=== PATIENT | female | born 1960 | race Caucasian/White ===

== ENCOUNTER 2016-12-18 13:30 | Emergency (ER) | payer SELFPAY ==
[~2016-12-18] VITALS: Ht 175.3 cm; Wt 86.0 kg
[~2016-12-18 13:30] MED LIST: LORA1TAB PO; METH4TAB2 PO; METH500T7 PO; NAPR500T PO; OMEP-110 PO
[2016-12-18] MEDS ORDERED: LORazepam 2 MG/ML, 1ML ONE (14:19)
[2016-12-18] MEDS ORDERED: LORazepam 2 MG/ML, 1ML IVPush ONE (14:30)
[2016-12-18 14:42] LABS: BLOOD UREA NITROGEN 11 mg/dL (7-18)
[2016-12-18] MEDS ORDERED: SODIUM CHLORIDE FLUSH 10ML SYR IVF ONE (15:00)
[2016-12-18 16:11] VITALS: BP 158/78
== END 2016-12-18 16:16 | disposition home or self-care (01) ==
LOC: ED 16:00
DX: M94.0 Chondrocostal junction syndrome [Tietze] (principal); F41.1 Generalized anxiety disorder; R06.4 Hyperventilation; J44.9 Chronic obstructive pulmonary disease, unspecified
CPT/HCPCS: 36415; 71010; 80048; 82040; 83880; 84484; 85025; 85379; 93005; 96374; 99285; J2060

== ENCOUNTER 2017-05-28 22:15 | Inpatient (IN) | payer OTHER ==
[~2017-05-28] VITALS: Ht 170.2 cm; Wt 89.3 kg
[~2017-05-28 22:15] MED LIST changes: +NAPR-856 PO; -NAPR500T PO
[2017-05-28] MEDS ORDERED: HYDROmorphone 2 MG/ML, 1ML ONE ×2 (22:47→23:21)
[2017-05-28] MEDS ORDERED: ONDANSETRON 2MG/ML, 2ML ONE (22:47)
[2017-05-28] MEDS: HYDROmorphone 2 MG/ML, 1ML IVPush PRN ×2 (22:54→23:28)
[2017-05-28] MEDS ORDERED: ONDANSETRON 2MG/ML, 2ML IVPush ONE (23:00)
[2017-05-28] MEDS ORDERED: SODIUM CHLORIDE 0.9% 1,000ML IVBOLUS ONE (23:00)
[2017-05-28 23:03] LABS: HEMATOCRIT 49.1 % (34.6-47.8); HEMOGLOBIN 16.1 g/dL (11.7-16.4); WHITE BLOOD COUNT 11.4 x10^3/uL (3.4-10)
[2017-05-28 23:14] LABS: ASPARTATE AMINO TRANSFERASE 139 U/L (15-37); BLOOD UREA NITROGEN 10 mg/dL (7-18)
[2017-05-28 23:36] LABS: IS PT STATUS REG ER OR PRE ER? YES
[2017-05-29] MEDS ORDERED: OMNIPAQUE 350 MG/ML, 100ML BOTTLE ONE (00:02)
[2017-05-29] MEDS ORDERED: SODIUM CHLORIDE 0.9% 1,000 ML IV ONE (01:43)
[2017-05-29] MEDS ORDERED: MORPHINE SULFATE 4 MG/ML, 1ML IVPush PRN (02:00)
[2017-05-29] MEDS ORDERED: SODIUM CHLORIDE 0.9% 1,000ML IVBOLUS ONE ×2 (02:00→06:00)
[2017-05-29 02:54] VITALS: BP 124/82
[2017-05-29] MEDS: SODIUM CHLORIDE 0.9% 1,000 ML IV SCH ×2 (06:00→21:38)
[2017-05-29] MEDS ORDERED: CEFEPIME 2 GM in DEXTROSE 5% 100 ML IV SCH (06:00)
[2017-05-29] MEDS ORDERED: HYDROmorphone 2 MG/ML, 1ML ONE (06:03)
[2017-05-29] MEDS: ONDANSETRON 2MG/ML, 2ML IVPush PRN ×3 (06:08→19:26)
[2017-05-29] MEDS: HYDROmorphone 2 MG/ML, 1ML IVPush PRN ×3 (06:09→19:17)
[2017-05-29 06:37] LABS: HEMATOCRIT 42.9 % (34.6-47.8); HEMOGLOBIN 14.4 g/dL (11.7-16.4); WHITE BLOOD COUNT 7.5 x10^3/uL (3.4-10)
[2017-05-29 06:40] LABS: DAU SCREEN DISCLAIMER
[2017-05-29 06:46] LABS: ASPARTATE AMINO TRANSFERASE 181 U/L (15-37); BLOOD UREA NITROGEN 9 mg/dL (7-18)
[2017-05-29 08:00] VITALS: BP 122/73
[2017-05-29] MEDS: CEFEPIME 2 GM in DEXTROSE 5% 100 ML IV SCH ×2 (08:10→21:47)
[2017-05-29] MEDS ORDERED: ACETAMINOPHEN 325 MG TABLET PO PRN (09:00)
[2017-05-29] MEDS ORDERED: OXYcodone IR 5MG TABLET PO PRN (09:00)
[2017-05-29] MEDS ORDERED: POLYETHYLENE GLYCOL 17 GM PACKET PO PRN (09:00)
[2017-05-29] MEDS ORDERED: DOCUSATE 100 MG CAPSULE PO PRN (09:00)
[2017-05-29] MEDS ORDERED: ALPRazolam 1MG TABLET PO ONE (10:00)
[2017-05-29] MEDS: SENNA/DOCUSATE TABLET PO SCH (10:46)
[2017-05-29] MEDS: NS + 20MEQ KCL 1,000 ML IV SCH (10:46)
[2017-05-29 12:43] VITALS: BP 130/81
[2017-05-29 20:11] VITALS: BP 144/82
[2017-05-29 20:45] VITALS: BP 130/68
[2017-05-29] MEDS ORDERED: LORazepam 2 MG/ML, 1ML IVPush ONE (22:00)
[2017-05-30] MEDS: HYDROmorphone 2 MG/ML, 1ML IVPush PRN ×3 (00:06→20:55)
[2017-05-30] MEDS: NS + 20MEQ KCL 1,000 ML IV SCH (01:43)
[2017-05-30] MEDS: ONDANSETRON 2MG/ML, 2ML IVPush PRN ×3 (01:43→15:56)
[2017-05-30 02:58] VITALS: BP 107/68
[2017-05-30 05:49] LABS: BLOOD UREA NITROGEN 7 mg/dL (7-18)
[2017-05-30 05:51] LABS: HEMATOCRIT 40.6 % (34.6-47.8); HEMOGLOBIN 13.8 g/dL (11.7-16.4); WHITE BLOOD COUNT 5.4 x10^3/uL (3.4-10)
[2017-05-30 05:53] LABS: ASPARTATE AMINO TRANSFERASE 46 U/L (15-37)
[2017-05-30] MEDS: SODIUM CHLORIDE 0.9% 1,000 ML IV SCH ×2 (06:43→19:54)
[2017-05-30 06:54] VITALS: BP 129/89
[2017-05-30] MEDS: SENNA/DOCUSATE TABLET PO SCH (09:00)
[2017-05-30] MEDS: CEFEPIME 2 GM in DEXTROSE 5% 100 ML IV SCH (09:39)
[2017-05-30 13:50] VITALS: BP 136/88
[2017-05-30] MEDS ORDERED: hydrALAzine 20 MG/ML, 1ML IV PRN (15:30)
[2017-05-30] MEDS ORDERED: OXYcodone 5 MG/5 ML ORAL.SOL UDC PO PRN (15:30)
[2017-05-30] MEDS ORDERED: LABETALOL 5MG/ML, 20ML IV PRN (15:30)
[2017-05-30] MEDS ORDERED: MEPERIDINE/PF 25MG/0.5ML IVPush PRN (15:30)
[2017-05-30] MEDS ORDERED: MIDAZOLAM 1 MG/ML, 2ML IV PRN (15:30)
[2017-05-30] MEDS ORDERED: ALBUTEROL SULFATE 2.5 MG/3 ML NPPB PRN (15:30)
[2017-05-30] MEDS ORDERED: PROMETHAZINE 25 MG/ML, 1ML IV PRN (15:30)
[2017-05-30] MEDS ORDERED: ACETAMINOPHEN 325 MG TABLET PO PRN (15:30)
[2017-05-30] MEDS ORDERED: HYDROmorphone 1 MG/ML, 1ML IV PRN (15:30)
[2017-05-30] MEDS ORDERED: ONDANSETRON 2MG/ML, 2ML IVPush PRN (15:30)
[2017-05-30] MEDS ORDERED: ALBUTEROL/IPRATROPIUM 2.5MG/0.5MG, 3 ML NPPB PRN (15:30)
[2017-05-30] MEDS ORDERED: FENTANYL PF 250 MCG/5ML ONE (15:57)
[2017-05-30] MEDS ORDERED: GLYCOPYRROLATE 0.4 MG/2 ML, 2ML ONE ×2 (16:01→17:09)
[2017-05-30] MEDS ORDERED: PROPOFOL 10 MG/ML, 20ML ONE (16:33)
[2017-05-30] MEDS ORDERED: ROCURONIUM 10 MG/ML,10ML ONE (16:33)
[2017-05-30] MEDS ORDERED: BUPIVACAINE/PF 0.25% ONE (16:36)
[2017-05-30] MEDS ORDERED: NEOSTIGMINE 1 MG/ML, 10ML ONE (16:41)
[2017-05-30] MEDS ORDERED: DEXAMETHASONE 4 MG/ML, 1ML ONE (16:41)
[2017-05-30] MEDS ORDERED: LABETALOL 5MG/ML, 20ML ONE (17:04)
[2017-05-30] MEDS ORDERED: KETOROLAC 30 MG/1 ML ONE (17:05)
[2017-05-30] MEDS: FENTANYL PF 100 MCG/2ML IV PRN ×2 (17:30→17:40)
[2017-05-30] MEDS ORDERED: FENTANYL PF 100 MCG/2ML ONE (17:39)
[2017-05-30] MEDS ORDERED: OXYcodone 5 MG/5 ML ORAL.SOL UDC ONE (17:39)
[2017-05-30] MEDS ORDERED: ACETAMINOPHEN 650 MG/20.3 ML UDC ONE (17:39)
[2017-05-30] MEDS ORDERED: CEFEPIME 2 GM in DEXTROSE 5% 50 ML IV SCH (17:54)
[2017-05-30] MEDS ORDERED: MEPERIDINE/PF 50 MG/ML ONE (17:54)
[2017-05-30] MEDS ORDERED: PROMETHAZINE 25 MG/ML, 1ML ONE (17:59)
[2017-05-30] MEDS ORDERED: OXYcodone/APAP 5/325MG TABLET PO PRN (19:00)
[2017-05-30 19:33] VITALS: BP 137/80
[2017-05-30] MEDS ORDERED: DIPHENHYDRAMINE 50 MG CAPSULE PO PRN (21:30)
[2017-05-30] MEDS: NICOTINE 7 MG/24 HR PATCH.TD24 TD SCH (22:18)
[2017-05-30 23:57] VITALS: BP 112/66
[2017-05-31] MEDS: HYDROmorphone 2 MG/ML, 1ML IVPush PRN ×5 (01:16→20:05)
[2017-05-31] MEDS: ONDANSETRON 2MG/ML, 2ML IVPush PRN (01:17)
[2017-05-31 02:20] VITALS: BP 122/62
[2017-05-31] MEDS: SODIUM CHLORIDE 0.9% 1,000 ML IV SCH ×2 (03:05→11:23)
[2017-05-31 07:25] VITALS: BP 145/83
[2017-05-31] MEDS: SENNA/DOCUSATE TABLET PO SCH (08:43)
[2017-05-31 15:51] VITALS: BP 133/86
[2017-05-31] MEDS: NICOTINE 7 MG/24 HR PATCH.TD24 TD SCH (20:06)
[2017-05-31 22:43] VITALS: BP 130/80
[2017-06-01] MEDS: HYDROmorphone 2 MG/ML, 1ML IVPush PRN ×3 (00:04→05:01)
[2017-06-01] MEDS: ONDANSETRON 2MG/ML, 2ML IVPush PRN ×2 (01:04→09:05)
[2017-06-01 03:09] VITALS: BP 137/81
[2017-06-01 07:18] VITALS: BP 133/80
[2017-06-01 08:13] LABS: PATH.CAST-FLAG NOT PRESENT; SPERM-FLAG NOT PRESENT; SRC-FLAG NOT PRESENT; XTAL-FLAG NOT PRESENT; YLC-FLAG NOT PRESENT
[2017-06-01 08:39] LABS: BLOOD UREA NITROGEN 9 mg/dL (7-18)
[2017-06-01] MEDS: SENNA/DOCUSATE TABLET PO SCH (09:05)
[2017-06-01 09:20] LABS: HEMATOCRIT 38.7 % (34.6-47.8); HEMOGLOBIN 12.9 g/dL (11.7-16.4)
[2017-06-01] MEDS ORDERED: ONDANSETRON ODT 4 MG PO PRN (09:30)
[2017-06-01] MEDS ORDERED: LORazepam 0.5MG TABLET PO PRN (09:30)
[2017-06-01] MEDS ORDERED: LORA1TAB PO (10:12)
[2017-06-01 10:15] VITALS: BP 133/72
== END 2017-06-01 10:45 | disposition home or self-care (01) | DRG 417 ==
LOC: ED 23:59 → 4NOR 05-29 01:43
PROVIDERS: ADMIT Surgery; ATTEND Family Medicine
PROC: 0FT44ZZ Resection of Gallbladder, Percutaneous Endoscopic Approach (ICD-10-PCS; principal; 2017-05-30 17:15)
DX: K80.00 Calculus of gallbladder with acute cholecystitis without obstruction (principal); K85.10 Biliary acute pancreatitis without necrosis or infection; E78.1 Pure hyperglyceridemia; F17.210 Nicotine dependence, cigarettes, uncomplicated; F41.9 Anxiety disorder, unspecified; I10 Essential (primary) hypertension; J44.9 Chronic obstructive pulmonary disease, unspecified; K21.9 Gastro-esophageal reflux disease without esophagitis; Z90.710 Acquired absence of both cervix and uterus; Z83.3 Family history of diabetes mellitus; Z82.49 Family history of ischemic heart disease and other diseases of the circulatory system; Z80.8 Family history of malignant neoplasm of other organs or systems; Z80.1 Family history of malignant neoplasm of trachea, bronchus and lung
CPT/HCPCS: 36415; 74177; 74181; 78227; 80048; 80053; 80061; 80307; 81001; 81003; 83690; 83735; 84100; 84484; 85025; 85610; 88304; 93005; 96361; 96374; C1729; J1100; J1170; J1885; J2175; J2405; J2550; J2704; J2710; J3010; J3480; J3490; Q9967; A9537; C1760; C9898; G0479; J2060; J7030

== ENCOUNTER 2019-08-30 18:35 | Emergency (ER) | payer MEDICAID ==
[~2019-08-30] VITALS: Ht 172.7 cm; Wt 85.0 kg
[2019-08-30] MEDS ORDERED: LORazepam 2 MG/ML, 1ML IVPush ONE (19:00)
[2019-08-30] MEDS ORDERED: SODIUM CHLORIDE FLUSH 10ML SYR IVF ONE (19:00)
[2019-08-30] MEDS ORDERED: ONDANSETRON 2MG/ML, 2ML IVPush ONE (19:00)
[2019-08-30] MEDS ORDERED: SODIUM CHLORIDE 0.9% 1,000ML IVBOLUS ONE (19:00)
[2019-08-30] MEDS ORDERED: LORazepam 2 MG/ML, 1ML ONE (19:19)
[2019-08-30] MEDS ORDERED: ONDANSETRON 2MG/ML, 2ML ONE (19:19)
--- NOTE | 2019-08-30 19:29 | NUR ---
pt medicated for nausea and anxiety per emar. pt tearful and anxious about her health and her treatment. will reassess anxiety
[2019-08-30 19:39] LABS: BASOPHILS # (AUTO) 0.01 x10^3/uL (0-0.1); BASOPHILS % (AUTO) 0 % (0-1); EOSINOPHILS # (AUTO) 0.01 x10^3/uL (0-0.4); EOSINOPHILS % (AUTO) 0 % (1-7); LYMPHOCYTES # (AUTO) 0.73 x10^3/uL (1-3.4); LYMPHOCYTES % (AUTO) 8 % (22-44); MD NO; MEAN CORPUSCULAR HEMOGLOBIN 30.3 pg (27.0-34.8); MEAN CORPUSCULAR HGB CONC 33.1 g/dL (32.4-35.8); MEAN CORPUSCULAR VOLUME 91.5 fL (80-100); MEAN PLATELET VOLUME 10.3 fL (7.4-10.4); MONOCYTES # (AUTO) 0.92 x10^3/uL (0.2-0.8); MONOCYTES % (AUTO) 10 % (2-9); NEUTROPHILS # (AUTO) 7.53 x10^3/uL (1.8-6.8); NEUTROPHILS % (AUTO) 82 % (42-75); PLATELET COUNT 204 x10^3/uL (130-400); RED BLOOD COUNT 5.99 x10^6/uL (3.82-5.3); RED CELL DISTRIBUTION WIDTH 13.3 % (9.6-15.2)
[2019-08-30 19:49] LABS: ALANINE AMINOTRANSFERASE 45 U/L (12-78); ALBUMIN 4.2 g/dL (3.4-5.0); ANION GAP 9 mmol/L (5-15); CALCIUM 9.3 mg/dL (8.5-10.1); CHLORIDE 110 mmol/L (98-107); CREATININE 1.35 mg/dL (0.55-1.02)
[2019-08-30 19:54] LABS: ALKALINE PHOSPHATASE 72 U/L (45-117); BILIRUBIN,TOTAL 0.4 mg/dL (0.2-1.0); TOTAL PROTEIN 8.1 g/dL (6.4-8.2); TROPONIN I < 0.015 ng/mL (0.000-0.045)
--- NOTE | 2019-08-30 20:12 | NUR ---
[facility] [phone]
--- NOTE | 2019-08-30 20:13 | NUR ---
PT REPORTS RELIEF IN ANXIETY AND NAUSEA SYMPTOMS
[2019-08-30 20:16] VITALS: BP 142/85
== END 2019-08-30 20:11 ==
LOC: ED 20:10
DX: R07.89 Other chest pain (principal); R11.0 Nausea; F41.1 Generalized anxiety disorder; R10.13 Epigastric pain; J44.9 Chronic obstructive pulmonary disease, unspecified; I10 Essential (primary) hypertension; Z87.891 Personal history of nicotine dependence; Z90.49 Acquired absence of other specified parts of digestive tract
CPT/HCPCS: 36415; 71046; 76700; 80053; 83690; 84484; 85025; 96361; 96374; 96375; 99285; J2060; J2405; J7030

== ENCOUNTER 2020-08-16 14:59 | Emergency (ER) | payer MEDICAID ==
[~2020-08-16] VITALS: Ht 172.7 cm; Wt 89.2 kg
[~2020-08-16 14:59] MED LIST changes: +METH-639 PO; -METH500T7 PO
--- NOTE | 2020-08-16 15:35 | NUR ---
Pt presents with chief complaint of abdominal pain and vomitting since lastnight. Pt has hx of smoking, drinking, and cholecystectomy r/t pancreatitis. Pt reports her last drink was last night about 1900. Pt presents with tremors and reports just feeling generally unwell.
[2020-08-16] MEDS ORDERED: LORazepam 2 MG/ML, 1ML ONE (15:47)
[2020-08-16] MEDS ORDERED: ONDANSETRON 2MG/ML, 2ML ONE (15:47)
[2020-08-16] MEDS: LORazepam 2 MG/ML, 1ML IVPush PRN ×2 (15:58→16:15)
[2020-08-16] MEDS ORDERED: ONDANSETRON 2MG/ML, 2ML IVPush ONE (16:00)
[2020-08-16] MEDS ORDERED: SODIUM CHLORIDE 0.9% 1,000ML IVBOLUS ONE (16:00)
[2020-08-16 16:07] LABS: BASOPHILS % (AUTO) 1 % (0-1); EOSINOPHILS % (AUTO) 1 % (1-7); LYMPHOCYTES % (AUTO) 26 % (22-44); MEAN CORPUSCULAR HEMOGLOBIN 31.3 pg (27.0-34.8); MEAN CORPUSCULAR HGB CONC 34.2 g/dL (32.4-35.8); MONOCYTES % (AUTO) 9 % (2-9); NEUTROPHILS % (AUTO) 63 % (42-75); PLATELET COUNT 210 x10^3/uL (130-400); RED BLOOD COUNT 5.27 x10^6/uL (3.82-5.3); RED CELL DISTRIBUTION WIDTH 13.2 % (9.6-15.2)
[2020-08-16 16:08] LABS: MD NO
[2020-08-16 16:18] LABS: ALANINE AMINOTRANSFERASE 32 U/L (12-78); ALBUMIN 3.6 g/dL (3.4-5.0); ANION GAP 8 mmol/L (5-15); CALCIUM 8.4 mg/dL (8.5-10.1); CHLORIDE 110 mmol/L (98-107); CREATININE 1.02 mg/dL (0.55-1.02)
[2020-08-16 16:23] LABS: ALKALINE PHOSPHATASE 63 U/L (45-117); BILIRUBIN,TOTAL 0.8 mg/dL (0.2-1.0); TOTAL PROTEIN 6.5 g/dL (6.4-8.2); TROPONIN I < 0.015 ng/mL (0.000-0.045)
--- NOTE | 2020-08-16 16:30 | NUR ---
US AT BEDSIDE.
[2020-08-16 18:23] VITALS: BP 133/87
== END 2020-08-16 18:25 | disposition home or self-care (01) ==
LOC: ED 18:10
DX: K29.20 Alcoholic gastritis without bleeding (principal); F10.10 Alcohol abuse, uncomplicated; R05 Cough; R10.12 Left upper quadrant pain; R11.2 Nausea with vomiting, unspecified; R06.02 Shortness of breath; R51.9 Headache, unspecified; R19.7 Diarrhea, unspecified; J44.9 Chronic obstructive pulmonary disease, unspecified; Z90.49 Acquired absence of other specified parts of digestive tract; Z79.899 Other long term (current) drug therapy; F17.210 Nicotine dependence, cigarettes, uncomplicated; Y90.0 Blood alcohol level of less than 20 mg/100 ml
CPT/HCPCS: 36415; 71045; 76700; 80053; 80320; 83690; 84484; 85025; 96361; 96374; 96375; 99285; J2060; J2405; J7030; 96376; G0480